=== PATIENT | female | born 1970 | race American Indian/Alaskan Native ===

== ENCOUNTER 2017-05-25 18:22 | Emergency (ER) | payer SELFPAY ==
[2017-05-25] MEDS ORDERED: NACL 0.9% 500 ML 500 ML IV ONE (21:07)
[2017-05-25] MEDS ORDERED: VALIUM IV ONE (21:07)
[2017-05-25] MEDS ORDERED: TORADOL IV ONE (21:07)
--- NOTE | 2017-05-25 21:10 | Emergency Department Report ---
ED General Adult HPI - General Chief complaint: Neck Pain/Injury Stated complaint: NECK/BACK PAIN(MEDICAL) Time Seen by Provider: 05/25/17 21:06 Source: patient, EMS (ems notes not available at time of chart dictation), RN notes reviewed Mode of arrival: Wheelchair Limitations: No Limitations - History of Present Illness Initial comments: This is a 46-year-old female who was previously unknown to this provider, has a past medical history of kidney stent. Reports that she is not . Patient presents to the ER with a complaint of neck pain. There is no trauma. The pain has been present for 4-5 days. It is paracervical, trapezius, and moved to the anterior aspect of the neck. It is sharp, and constant, increases with palpation, range of motion, twisting of the neck. Patient denies fevers, chills, chest pain abdominal pain or shortness of breath. She reports retching and nausea, and also describes pain with swallowing. -: Gradual Location: neck Radiation: other (radiates to anterior aspect of the neck) Quality: burning, stabbing, aching Consistency: constant Improves with: rest Worsens with: movement Associated Symptoms: loss of appetite, malaise. denies: confusion, chest pain, cough, diaphoresis, fever/chills, shortness of breath, syncope, weakness - Related Data Previous Rx's Medication Instructions Recorded Last Taken Type Brompheniramine/Pseudoephed/Dm 10 ml PO Q8H PRN #150 ml 03/15/16 Unknown Rx [Bromfed Dm Cough Syrup] predniSONE [Deltasone] 50 mg PO QDAY #5 tab 03/15/16 Unknown Rx Ibuprofen [Motrin] 600 mg PO Q8H PRN #30 tablet 05/26/17 Unknown Rx Ondansetron [Zofran Odt] 4 mg PO Q8HR PRN #20 tab.rapdis 05/26/17 Unknown Rx Allergies Allergy/AdvReac Type Severity Reaction Status Date / Time codeine Allergy Vomiting Verified 03/15/16 20:37 IV Contrast Allergy Intermediate Itching Uncoded 05/26/17 01:39 ED Review of Systems ROS: Stated complaint: NECK/BACK PAIN(MEDICAL) Other details as noted in HPI ED Past Medical Hx - Past Medical History Previous Medical History?: Yes Additional medical history: KIDNEY STENT / OVARIAN CYST, Vaginal dleivery x 2 - Surgical History Past Surgical History?: Yes Additional Surgical History: RIGHT KIDNEY STENTS - Social History Smoking Status: Current Every Day Smoker Substance Use Type: Prescribed - Medications Home Medications: Home Medications Medication Instructions Recorded Confirmed Last Taken Type Brompheniramine/Pseudoephed/Dm 10 ml PO Q8H PRN #150 ml 03/15/16 Unknown Rx [Bromfed Dm Cough Syrup] predniSONE [Deltasone] 50 mg PO QDAY #5 tab 03/15/16 Unknown Rx Ibuprofen [Motrin] 600 mg PO Q8H PRN #30 tablet 05/26/17 Unknown Rx Ondansetron [Zofran Odt] 4 mg PO Q8HR PRN #20 tab.rapdis 05/26/17 Unknown Rx ED Physical Exam - General Limitations: Physical Limitation General appearance: alert, in distress - Head Head exam: Present: atraumatic, normocephalic - Eye Eye exam: Present: normal appearance, EOMI. Absent: nystagmus - ENT ENT exam: Present: normal exam, normal orophraynx, mucous membranes moist, TM's normal bilaterally, normal external ear exam - Neck Neck exam: Present: normal inspection, tenderness, other (there is reproducible trapezius tenderness. The paralaryngeal spaces are tender. There is no stridor or dysphonia. There is no elevation of the patient the tongue.). Absent: meningismus, lymphadenopathy, thyromegaly - Respiratory Respiratory exam: Present: normal lung sounds bilaterally. Absent: respiratory distress - Cardiovascular Cardiovascular Exam: Present: regular rate, normal rhythm, normal heart sounds. Absent: systolic murmur, diastolic murmur, rubs, gallop - GI/Abdominal GI/Abdominal exam: Present: soft, normal bowel sounds. Absent: distended, tenderness, guarding, rebound, rigid - Extremities Exam Extremities exam: Present: normal inspection, full ROM, normal capillary refill. Absent: pedal edema, joint swelling, calf tenderness - Back Exam Back exam: Present: normal inspection, full ROM, paraspinal tenderness. Absent : vertebral tenderness - Neurological Exam Neurological exam: Present: alert, oriented X3, CN II-XII intact, other ( Extraocular movements intact. Tongue midline. No facial droop. Facial sensation intact to light touch in the V1, V2, V3 distribution bilaterally. 5 and 5 strength in 4 extremities.. Sensation is intact to light touch in 4 extremities.). Absent: motor sensory deficit - Psychiatric Psychiatric exam: Present: anxious - Skin Skin exam: Present: warm, dry, intact, normal color. Absent: rash ED Course Vital Signs 05/25/17 05/26/17 18:27 02:08 Temperature 97.2 F L 98.9 F Pulse Rate 98 H 70 Respiratory 20 18 Rate Blood Pressure 177/101 Blood Pressure 108/63 [Right] O2 Sat by Pulse 100 99 Oximetry - Reevaluation(s) Reevaluation #1: 05/25/17 21:14 Differential diagnosis, including but not limited to: Deep space neck infection , myositis, muscular spasm Assessment and plan: 46-year-old female who endorses dysphasia, neck pain, trapezius pain he is afebrile with reassuring vital signs with the exception of elevated blood pressure, this may be secondary to pain. She has full range of motion of her bilateral upper and lower extremities, and the muscular [place] of her neck appeared to be diffusely tender, with no obvious redness, pus, streaking, cellulitis. I highly suspect a spastic component. However, given her endorsement of dysphasia and reproducible paralaryngeal tenderness, I will obtain a neck CT to exclude myositis, D infection. The patient reports that she is not , she will therefore be treated with Valium and Toradol for pain. We will reassess. Reevaluation #2: 05/25/17 22:57 Feeling improved after Toradol. Valium canceled. Continues to speak in full sentences. Patient endorses nonspecific intolerance to IV dye, reports itching and nausea. Denies anaphylaxis. Patient to be premedicated with Pepcid, Benadryl, Solu-Medrol Reevaluation #3: 05/26/17 01:08 Patient feeling improved. Walking around the department without difficulty. Noted to be talking on the phone without difficulty. CT scan has been performed. Interpretation is pending. Reevaluation #4: 05/26/17 02:15 Vital signs remain stable. Patient reports that she feels much improved. CT scan interpretation results demonstrate the following side findings: IMPRESSION: Mild asymmetry of the piriform sinuses, left smaller than right. Findings likely related to patient rotation. Consider further evaluation including endoscopic evaluation if there is continued clinical concern. Small lymph nodes scattered throughout the neck, right greater than left. Consider could be reactive. Consider further evaluation and followup if there is continued clinical concern. Low-attenuation lesion in the right thyroid lobe of the thyroid gland, consider thyroid ultrasound. Patient reports that her pain is improved and she is tolerating liquid feeds. She will be discharged with instructions to follow up with outpatient otolaryngology for possible endoscopic evaluation. Return precautions are reviewed. ED Medical Decision Making - Lab Data Result diagrams: 05/25/17 21:23 05/25/17 21:23 Vital Signs 05/25/17 18:27 Temperature 97.2 F L Pulse Rate 98 H Respiratory 20 Rate Blood Pressure 177/101 O2 Sat by Pulse 100 Oximetry - Radiology Data Radiology results: report reviewed, image reviewed Print Report Referring Physician: CONY HERNDON Patient Name: ZACKERY ANN Date of : 1970 Sex: Female Report Date: 2017-05-25 Report Status: [place] [address] Cat Scan Report Signed Patient: ZACKERY ANN MR#: [id number] : 1970 Acct:[id number] Age/Sex: 46 / F ADM Date: 05/25/17 Loc: ED Attending Dr: Ordering Physician: CONY HERNDON MD Date of Service: 05/26/17 Procedure(s): CT neck w con Accession Number(s): [id number] cc: CONY HERNDON MD FINAL REPORT PROCEDURE: CT NECK W CON TECHNIQUE: Computerized axial tomography of the soft tissue neck was performed following the IV injection of iodinated nonionic contrast. HISTORY: Neck pain, right side. COMPARISON: No prior studies are available for comparison. FINDINGS: Skull and scalp: Normal. Paranasal sinuses: Slight leftward septal deviation. Nasopharynx: Normal . Oral cavity: Normal . Epiglottis/vallecula: Normal . Larynx/piriform sinuses: Mild asymmetry of the piriform sinuses, left piriform sinus smaller than the right. Thyroid gland: Normal . Lymph nodes: Small lymph nodes scattered throughout the neck, right greater than left. Largest one on the right just anterior to carotid artery and internal jugular vein at/just below the level of the mandible measures 7 x 7 mm. Salivary glands: Normal . Upper thorax: Normal . Thyroid: 4 mm low-attenuation lesion in the right lobe of the thyroid gland. Other: Slight calcification in the proximal left ICA. C5-6 osteophytes. IMPRESSION: Mild asymmetry of the piriform sinuses, left smaller than right. Findings likely related to patient rotation. Consider further evaluation including endoscopic evaluation if there is continued clinical concern. Small lymph nodes scattered throughout the neck, right greater than left. Consider could be reactive. Consider further evaluation and followup if there is continued clinical concern. Low-attenuation lesion in the right thyroid lobe of the thyroid gland, consider thyroid ultrasound. Transcribed By: DANIS Dictated By: MOHIT MANRIQUEZ MD Electronically Authenticated By: MOHIT MANRIQUEZ MD Signed Date/Time: 05/25/17 7617 Critical care attestation.: If time is entered above; I have spent that time in minutes in the direct care of this critically ill patient, excluding procedure time. ED Disposition Clinical Impression: Neck pain Disposition: DC- TO HOME OR SELFCARE Is pt being admited?: No Does the pt Need Aspirin: No Condition: Stable Instructions: Adenitis (ED) Additional Instructions: Take pain medication, nausea medication as needed/directed. Advance diet as tolerated. CT scan demonstrated the following incidental findings: IMPRESSION: Mild asymmetry of the piriform sinuses, left smaller than right. Findings likely related to patient rotation. Consider further evaluation including endoscopic evaluation if there is continued clinical concern. Small lymph nodes scattered throughout the neck, right greater than left. Consider could be reactive. Consider further evaluation and followup if there is continued clinical concern. Low-attenuation lesion in the right thyroid lobe of the thyroid gland, consider thyroid ultrasound. Follow-up with an outpatient ENT physician, costumed character within the next [address] Iona Banks is one such physician. It is important to follow up as directed to exclude cancer, tumor, malignancy. Return to the ER right away with new pain, worsened pain, migration of pain, fevers, chills, lethargy, irritability, projectile vomiting, change in mental status, confusion, inability to tolerate liquid feeds, inability to speak, inability to breathe. Referrals: CONY QIU MD [Primary Care Provider] - 3-5 Days JILL MURILLO MD [Staff Physician] - 3-5 Days
[2017-05-25 21:41] LABS: Basophils # (Auto) 0.1 K/mm3 (0.0-0.1); Basophils % (Auto) 0.6 % (0.0-1.8); Eosinophils % (Auto) 0.1 % (0.0-4.3); Hematocrit 38.4 % (30.3-42.9); Hemoglobin 12.3 gm/dl (10.1-14.3); Lymphocytes # (Auto) 0.9 K/mm3 (1.2-5.4); Lymphocytes % (Auto) 6.1 % (13.4-35.0); Mean Corpuscular HGB Conc 32 % (30-34); Mean Corpuscular Hemoglobin 29 pg (28-32); Mean Corpuscular Volume 92 fl (79-97); Monocytes # (Auto) 2.1 K/mm3 (0.0-0.8); Platelet Count 357 K/mm3 (140-440); Red Blood Count 4.19 M/mm3 (3.65-5.03); Red Cell Distribution Width 16.4 % (13.2-15.2)
[2017-05-25 21:51] LABS: BUN/Creatinine Ratio 17; Blood Urea Nitrogen 10 mg/dL (7-17); Calcium 9.5 mg/dL (8.4-10.2); Hemolysis Index 6
[2017-05-25] MEDS ORDERED: PEPCID IV ONE (22:37)
[2017-05-25] MEDS ORDERED: BENADRYL IV ONE (22:37)
--- NOTE | 2017-05-26 01:56 | Cat Scan Report ---
FINAL REPORT PROCEDURE: CT NECK W CON TECHNIQUE: Computerized axial tomography of the soft tissue neck was performed following the IV injection of iodinated nonionic contrast. HISTORY: Neck pain, right side. COMPARISON: No prior studies are available for comparison. FINDINGS: Skull and scalp: Normal. Paranasal sinuses: Slight leftward septal deviation. Nasopharynx: Normal . Oral cavity: Normal . Epiglottis/vallecula: Normal . Larynx/piriform sinuses: Mild asymmetry of the piriform sinuses, left piriform sinus smaller than the right. Thyroid gland: Normal . Lymph nodes: Small lymph nodes scattered throughout the neck, right greater than left. Largest one on the right just anterior to carotid artery and internal jugular vein at/just below the level of the mandible measures 7 x 7 mm. Salivary glands: Normal . Upper thorax: Normal . Thyroid: 4 mm low-attenuation lesion in the right lobe of the thyroid gland. Other: Slight calcification in the proximal left ICA. C5-6 osteophytes. IMPRESSION: Mild asymmetry of the piriform sinuses, left smaller than right. Findings likely related to patient rotation. Consider further evaluation including endoscopic evaluation if there is continued clinical concern. Small lymph nodes scattered throughout the neck, right greater than left. Consider could be reactive. Consider further evaluation and followup if there is continued clinical concern. Low-attenuation lesion in the right thyroid lobe of the thyroid gland, consider thyroid ultrasound.
[2017-05-26 02:09] VITALS: BP 108/63
== END 2017-05-26 02:25 | disposition home or self-care (01) ==
LOC: ED 18:22
DX: M54.2 Cervicalgia (principal); R63.0 Anorexia; R53.1 Weakness; R11.2 Nausea with vomiting, unspecified; F17.200 Nicotine dependence, unspecified, uncomplicated; Z88.5 Allergy status to narcotic agent; Z91.041 Radiographic dye allergy status; Z98.890 Other specified postprocedural states
CPT/HCPCS: 36415; 70491; 80048; 82550; 84702; 85025; 96361; 96374; 96375; 99284; J1200; J1885; J2930; J7040; Q9967